=== PATIENT | male | born 1955 | race Caucasian/White ===

== ENCOUNTER 2020-12-05 14:17 | Emergency (ER) | payer OTHER, MEDICARE, SELFPAY ==
[2020-12-05 14:23] VITALS: BP 93/55; PULSE 91; RESP 18; TEMP 36.7; O2SAT 98; BMI 18.8
--- NOTE | 2020-12-05 15:53 | W.ED.GENADLT ---
HPI - General Adult General: Chief complaint: General Medical Stated complaint: needs new cath put in Time Seen by Provider: 12/05/20 15:30 History of Present Illness: HPI narrative: 65-year-old male recently had a De Jesus cath placed for urinary retention he traveled yesterday from the hospital he was discharged catheter has been leaking and not functioning correctly. Completely requesting catheter be replaced. He is not had any bleeding. He is not had any pain. Associated symptoms: Deny chest pain, dyspnea, malaise, nausea, rash or vomiting Review of Systems Const: Denies: fever(s), chills, body aches, change in appetite, fatigue or malaise ENMT: Denies: throat pain, ear or mastoid pain, nasal discharge or nasal congestion Card: Denies: chest pain, edema, dyspnea on exertion or orthopnea Resp: Denies: dyspnea, productive cough or non-productive cough GI: Denies: abdominal pain, nausea, vomiting, hematemesis, coffee ground emesis, diarrhea, constipation, bloating, hematochezia or melena : Denies: flank pain, dysuria, urinary frequency or urinary urgency Skin/Breast: Denies: rash or pruritus Physical Exam Const: COMMON NORMALS: no acute distress GENERAL APPEARANCE: cooperative and comfortable ORIENTATION/CONSCIOUSNESS: Yes awake, Yes oriented to person, Yes oriented to place and Yes oriented to time HENMT: COMMON NORMALS: normocephalic, atraumatic and hearing grossly normal bilaterally HEAD & SCALP: normocephalic and atraumatic Neck/C-Spine: COMMON NORMALS: no JVD Resp: COMMON NORMALS: normal respiratory effort, No retractions, No use of accessory muscles and clear to auscultation bilaterally AUSCULTATION: clear to auscultation bilaterally Cardio: COMMON NORMALS: no JVD, regular rate, regular rhythm and No murmurs present (Cardio) RATE: regular rate RHYTHM: regular rhythm GI: COMMON NORMALS: Soft to palpation and No hepatosplenomegaly present AUSCULTATION: Yes normoactive bowel sounds PALPATION: Yes Soft to palpation, No Tenderness to palpation present (GI), No Guarding due to palpation present (GI) and Yes No hepatosplenomegaly present Extremity: COMMON NORMALS: normal to inspection, capillary refill normal, no clubbing, cyanosis or edema, no calf tenderness and no pedal edema Neuro: SENSORIUM/ORIENTATION: Yes oriented to person, Yes oriented to place and Yes oriented to time Skin: COMMON NORMALS: no rashes or lesions noted GENERAL SKIN EXAM: no rashes or lesions noted Course Vital Signs: Vital signs: Vital Signs Temperature 98.1 F 12/05/20 14:23 Pulse Rate 89 12/05/20 16:50 Respiratory Rate 16 12/05/20 16:50 Blood Pressure 100/61 12/05/20 16:50 Pulse Oximetry 97 12/05/20 16:50 MDM - General Adult MDM Narrative: Medical decision making narrative: Catheter placed patient feels better will discharge home follow-up as needed Discharge Plan Discharge Patient Disposition: Home Clinical Impression: Urinary retention, De Jesus catheter problem Condition: Stable Discharge Orders: Discharge ED (Routine); Ordered 12/05/20 Ordered By: Keaton Lemus Patient Instructions: Opioid Safety Coding Level of Care Code ED Commutator As[employer] for Cosmo Sahni
[2020-12-05 16:50] VITALS: BP 100/61; PULSE 89; RESP 16; O2SAT 97
== END 2020-12-05 17:21 | disposition home or self-care (01) ==
PROVIDERS: Emergency Provider Family Medicine
DX: T83.098A Other mechanical complication of other urinary catheter, initial encounter (principal)
CPT/HCPCS: 51702; 99282

== ENCOUNTER → 2020-12-13 09:49 | Outpatient (BNVA) | payer OTHER, MEDICARE, SELFPAY | PROVIDERS: Visit Provider Family Medicine | DX: I48.91 Unspecified atrial fibrillation (principal); I50.30 Unspecified diastolic (congestive) heart failure; F10.10 Alcohol abuse, uncomplicated; E55.9 Vitamin D deficiency, unspecified; I10 Essential (primary) hypertension; G45.9 Transient cerebral ischemic attack, unspecified; D49.6 Neoplasm of unspecified behavior of brain; F17.200 Nicotine dependence, unspecified, uncomplicated; Z79.01 Long term (current) use of anticoagulants | CPT/HCPCS: 36415; 36416; 80053; 85025; 85610 ==

== ENCOUNTER → 2021-01-09 00:01 | Outpatient (BNVA) | payer MEDICAID, SELFPAY | PROVIDERS: PCP Nurse Practitioner Family; Visit Provider Family Medicine | DX: E03.9 Hypothyroidism, unspecified (principal); I48.91 Unspecified atrial fibrillation; I50.30 Unspecified diastolic (congestive) heart failure; E07.9 Disorder of thyroid, unspecified; M54.9 Dorsalgia, unspecified; J44.9 Chronic obstructive pulmonary disease, unspecified | CPT/HCPCS: 80053; 84443; 85025 ==